=== PATIENT | male | born 1970 | race American Indian/Alaskan Native ===

== ENCOUNTER 2020-08-20 14:52 | Observation (INO) | payer BC ==
[2020-08-20] MEDS ORDERED: HEPARIN 10,000 UNITS/10 ML VIAL ONE (14:57)
[2020-08-20] MEDS ORDERED: fentaNYL 100 MCG/2 ML INJ ONE (14:57)
[2020-08-20] MEDS ORDERED: MIDAZOLAM 2 MG/2 ML INJ ONE (14:57)
[2020-08-20] MEDS ORDERED: HEPARIN/NS 5000 UNIT/500ML 0 ML IR ONE (14:57)
[2020-08-20] MEDS ORDERED: VERAPAMIL 5 MG/2 ML INJ ONE (14:58)
[2020-08-20] MEDS ORDERED: NITROGLYCERIN SYRINGE 0 ML ONE (14:58)
[2020-08-20] MEDS ORDERED: LIDOCAINE (2%) 20 MG/1 ML VIAL 20 ML MDV INFILTRATI ONE (14:58)
--- NOTE | 2020-08-20 15:04 | Emergency Department Report ---
ED General Adult HPI - General Time Seen by Provider: 08/20/20 15:00 - History of Present Illness Initial comments: Patient is a 49-year-old hypertensive male with past medical history of hypercholesterolemia and former smoking history presents emergency department for evaluation of chest pressure intermittently throughout the day beginning yesterday and into today. Patient was on his way to cardiology appointment when he began having chest pressure, called EMS who gave patient 1 dose of sublingual nitroglycerin with resolution of discomfort. Patient states he took aspirin prior to arrival. On arrival, patient pain-free, arrives as code STEMI, activated in ER. Denies maternal/paternal CAD. - Related Data Allergies Allergy/AdvReac Type Severity Reaction Status Date / Time No Known Allergies Allergy Unverified 08/20/20 15:23 ED Review of Systems ROS: Stated complaint: Other details as noted in HPI Comment: All other systems reviewed and negative ED Past Medical Hx - Past Medical History Hx Hypertension: Yes Hx Heart Attack/AMI: No Additional medical history: Hypercholesterolemia ED Physical Exam - General Limitations: No Limitations General appearance: alert, in no apparent distress - Head Head exam: Present: atraumatic, normocephalic - Eye Eye exam: Present: normal appearance - ENT ENT exam: Present: mucous membranes moist - Neck Neck exam: Present: normal inspection - Respiratory Respiratory exam: Present: normal lung sounds bilaterally. Absent: respiratory distress - Cardiovascular Cardiovascular Exam: Present: regular rate, normal rhythm - GI/Abdominal GI/Abdominal exam: Present: soft, normal bowel sounds - Rectal Rectal exam: Present: deferred - Extremities Exam Extremities exam: Present: normal inspection - Back Exam Back exam: Present: normal inspection - Neurological Exam Neurological exam: Present: alert, oriented X3 - Psychiatric Psychiatric exam: Present: normal affect, normal mood - Skin Skin exam: Present: warm, dry, intact, normal color. Absent: rash ED Course Vital Signs 08/20/20 08/20/20 15:10 15:15 Temperature 98 F Pulse Rate 95 H Respiratory 18 16 Rate Blood Pressure 140/102 O2 Sat by Pulse 95 95 Oximetry - Reevaluation(s) Reevaluation #1: 08/20/20 15:04 Dr. Will contacted, case discussed, EKG transmitted, cardiology states EKG not concerning for ME, STEMI deactivated Reevaluation #2: 08/20/20 15:05 Patient initially treated with IV normal saline 500 mL x 1, clonidine 0.2 mg p.o. x1 for tachycardia and hypertension ED Medical Decision Making - Lab Data Result diagrams: 08/20/20 15:12 - EKG Data -: EKG Interpreted by Me (Sinus tachycardia 117, nonspecific ST-T changes, normal QRS) - Radiology Data Radiology results: report reviewed Chest x-ray negative per radiology Critical care attestation.: If time is entered above; I have spent that time in minutes in the direct care of this critically ill patient, excluding procedure time. ED Disposition Clinical Impression: Chest pain Disposition: DC-09 OP ADMIT IP TO THIS HOSP Is pt being admited?: Yes Condition: Stable Instructions: Nonspecific Chest Pain, Adult Heart Score - HEART Score History: Slightly suspicious EKG: Non-specific Age: 45-65 Risk factors: > 3 risk factors or hx of atherosclerotic disease Troponin: < normal limit HEART Score: 4 - Critical Actions Critical Actions: 0-3 pts:0.9-1.7%risk of adverse cardiac event.Candidate for discharge
[2020-08-20 15:35] LABS: Eosinophils # (Auto) 0.2 K/mm3 (0.0-0.4); Eosinophils % (Auto) 2.9 % (0.0-4.3); Monocytes # (Auto) 0.4 K/mm3 (0.0-0.8); Monocytes % (Auto) 7.2 % (0.0-7.3)
[2020-08-20 15:50] LABS: INR 0.96 (0.87-1.13)
--- NOTE | 2020-08-20 15:50 | XRay Report ---
CHEST 1 VIEW INDICATION: Chest Pain. COMPARISON: None FINDINGS: Support devices: None. Heart: Within normal limits. Lungs/Pleura: No acute air space or interstitial disease. Additional findings: None. IMPRESSION: No acute findings. Signer Name: Jonathon Myles Jr, MD Signed: 08/20/2020 3:46 PM Workstation Name: [id number]
[2020-08-20 15:59] LABS: Alanine Aminotransferase 24 units/L (7-56); Albumin 4.4 g/dL (3.9-5); BUN/Creatinine Ratio 13; Blood Urea Nitrogen 15 mg/dL (9-20); Calcium 8.9 mg/dL (8.4-10.2); Hemolysis Index 11
[2020-08-20 16:34] LABS: Basophils % (Auto) 0.6 % (0.0-1.8); Hematocrit 47.3 % (35.5-45.6); Hemoglobin 15.8 gm/dl (11.8-15.2); Lymphocytes # (Auto) 1.2 K/mm3 (1.2-5.4); Lymphocytes % (Auto) 22.6 % (13.4-35.0); Mean Corpuscular HGB Conc 33 % (32-34); Mean Corpuscular Volume 82 fl (84-94); Platelet Count 134 K/mm3 (140-440); Red Blood Count 5.76 M/mm3 (3.65-5.03); Red Cell Distribution Width 14.3 % (13.2-15.2)
[2020-08-20] MEDS ORDERED: cloNIDine 0.2 MG TAB PO ONE (18:33)
[2020-08-20] MEDS ORDERED: SODIUM CHLORIDE 0.9% 500 ML 500 ML IV ONE (19:00)
[2020-08-20] MEDS ORDERED: hydrALAZINE 20 MG/1 ML INJ IV PRN (21:08)
[2020-08-21] MEDS ORDERED: oxyCODONE /ACETAMINOPHEN 5-325MG TAB PO PRN (00:57)
[2020-08-21] MEDS ORDERED: MORPHINE 2 MG/1 ML INJ IV PRN (00:57)
[2020-08-21] MEDS ORDERED: ACETAMINOPHEN 325 MG TAB PO PRN (00:57)
[2020-08-21] MEDS ORDERED: METOCLOPRAMIDE 10 MG/2 ML INJ IV PRN (00:57)
[2020-08-21] MEDS ORDERED: ONDANSETRON 4 MG/2 ML INJ IV PRN (00:57)
--- NOTE | 2020-08-21 01:02 | History and Physical Report ---
History of Present Illness Date of examination: 08/20/20 Date of admission: 08/20/20 15:54 Chief complaint: Chest pain since a.m. History of present illness: 49-year-old male with history of hypertension and hyperlipidemia presents with chest pressure since last night. Intermittent in nature. Patient is going to have cardiology appointment and started having chest pain before the recently called EMS and came to the emergency room. Patient was given sublingual nitroglycerin with resolution of chest pain by EMS. Patient also took aspirin prior to arrival. On arrival patient was pain-free. Because of the EKG changes code STEMI was called and then later it was canceled. Patient had acute ST-T wave changes secondary to his severe LVH on the EKG. No shortness of breath. No diaphoresis. No radiation of pain. Patient not taking his blood pressure medications. Patient complains of pedal edema Past History Past Medical History: hypertension, hyperlipidemia Past Surgical History: No surgical history Social history: no significant social history, lives with family, full code Family history: hypertension Medications and Allergies Allergies Allergy/AdvReac Type Severity Reaction Status Date / Time No Known Allergies Allergy Unverified 08/20/20 15:23 Home Medications Medication Instructions Recorded Confirmed Last Taken Type Aspirin [Adult Aspirin] 81 mg PO DAILY 08/20/20 08/20/20 Unknown History Atorvastatin [Lipitor Tab] 80 mg PO QHS 08/20/20 08/20/20 Unknown History NIFEdipine [Procardia Xl] 30 mg PO DAILY 08/20/20 08/20/20 Unknown History hydrALAZINE [Apresoline] 25 mg PO Q8HR 08/20/20 08/20/20 Unknown History Active Meds: Active Medications Hydralazine HCl (Hydralazine 20 Mg/1 Ml Inj) 10 mg IV Q4HR PRN PRN Reason: Blood Pressure Last Admin: 08/20/20 21:48 Dose: 10 mg Documented by: Exam - Constitutional Vitals: Temp Pulse Resp BP Pulse Ox 98.3 F 83 14 145/87 98 08/20/20 23:26 08/21/20 00:40 08/20/20 23:26 08/20/20 23:26 08/20/20 23:26 General appearance: Present: no acute distress, well-nourished - EENT Eyes: Present: PERRL ENT: hearing intact, clear oral mucosa - Neck Neck: Present: supple, normal ROM - Respiratory Respiratory effort: normal Respiratory: bilateral: CTA - Cardiovascular Rhythm: regular Heart Sounds: Present: S1 & S2. Absent: rub, click - Extremities Extremities: pulses symmetrical, No edema Extremity abnormal: edema Peripheral Pulses: within normal limits - Abdominal General gastrointestinal: Present: soft, non-tender, non-distended, normal bowel sounds Male genitourinary: Present: normal - Integumentary Integumentary: Present: clear, warm, dry - Musculoskeletal Musculoskeletal: gait normal, strength equal bilaterally - Psychiatric Psychiatric: appropriate mood/affect, intact judgment & insight - Neurologic Neurologic: CNII-XII intact, moves all extremities HEART Score - HEART Score EKG: Non-specific Age: 45-65 Risk factors: 1-2 risk factors Troponin: Troponin T 0.018 ng/mL (0.00-0.029) 08/20/20 15:12 Troponin: < normal limit - Critical Actions Critical Actions: 0-3 pts:0.9-1.7%risk of adverse cardiac event.Candidate for discharge Results - Labs CBC & Chem 7: 08/20/20 15:12 08/20/20 15:12 Labs: Laboratory Last Values WBC 5.5 K/mm3 (4.5-11.0) 08/20/20 15:12 RBC 5.76 M/mm3 (3.65-5.03) H 08/20/20 15:12 Hgb 15.8 gm/dl (11.8-15.2) H 08/20/20 15:12 Hct 47.3 % (35.5-45.6) H 08/20/20 15:12 MCV 82 fl (84-94) L 08/20/20 15:12 MCH 27 pg (28-32) L 08/20/20 15:12 MCHC 33 % (32-34) 08/20/20 15:12 RDW 14.3 % (13.2-15.2) 08/20/20 15:12 Plt Count 134 K/mm3 (140-440) L 08/20/20 15:12 Lymph % (Auto) 22.6 % (13.4-35.0) 08/20/20 15:12 Miner % (Auto) 7.2 % (0.0-7.3) 08/20/20 15:12 Eos % (Auto) 2.9 % (0.0-4.3) 08/20/20 15:12 Baso % (Auto) 0.6 % (0.0-1.8) 08/20/20 15:12 Lymph # (Auto) 1.2 K/mm3 (1.2-5.4) 08/20/20 15:12 Miner # (Auto) 0.4 K/mm3 (0.0-0.8) 08/20/20 15:12 Eos # (Auto) 0.2 K/mm3 (0.0-0.4) 08/20/20 15:12 Baso # (Auto) 0.0 K/mm3 (0.0-0.1) 08/20/20 15:12 Seg Neutrophils % 66.7 % (40.0-70.0) 08/20/20 15:12 Seg Neutrophils # 3.6 K/mm3 (1.8-7.7) 08/20/20 15:12 PT 12.7 Sec. (12.2-14.9) 08/20/20 15:12 INR 0.96 (0.87-1.13) 08/20/20 15:12 Sodium 138 mmol/L (137-145) 08/20/20 15:12 Potassium 3.4 mmol/L (3.6-5.0) L 08/20/20 15:12 Chloride 102.1 mmol/L (98-107) 08/20/20 15:12 Carbon Dioxide 24 mmol/L (22-30) 08/20/20 15:12 Anion Gap 15 mmol/L 08/20/20 15:12 BUN 15 mg/dL (9-20) 08/20/20 15:12 Creatinine 1.2 mg/dL (0.8-1.3) 08/20/20 15:12 Estimated GFR > 60 ml/min 08/20/20 15:12 BUN/Creatinine Ratio 13 % 08/20/20 15:12 Glucose 144 mg/dL (75-100) H 08/20/20 15:12 Calcium 8.9 mg/dL (8.4-10.2) 08/20/20 15:12 Total Bilirubin 0.40 mg/dL (0.1-1.2) 08/20/20 15:12 AST 18 units/L (5-40) 08/20/20 15:12 ALT 24 units/L (7-56) 08/20/20 15:12 Alkaline Phosphatase 65 units/L (35-129) 08/20/20 15:12 Troponin T 0.018 ng/mL (0.00-0.029) 08/20/20 15:12 NT-Pro-B Natriuret Pep 920.0 pg/mL (0-900) H 08/20/20 15:12 Total Protein 7.6 g/dL (6.3-8.2) 08/20/20 15:12 Albumin 4.4 g/dL (3.9-5) 08/20/20 15:12 Albumin/Globulin Ratio 1.4 % 08/20/20 15:12 Lipase 44 units/L (13-60) 08/20/20 15:12 Short CBC 08/20/20 Range/Units 15:12 WBC 5.5 (4.5-11.0) K/mm3 Hgb 15.8 H (11.8-15.2) gm/dl Hct 47.3 H (35.5-45.6) % Plt Count 134 L (140-440) K/mm3 BMP 08/20/20 15:12 Sodium 138 Potassium 3.4 L Chloride 102.1 Carbon Dioxide 24 BUN 15 Creatinine 1.2 Glucose 144 H Calcium 8.9 Cardiac Enzymes 08/20/20 Range/Units 15:12 Troponin T 0.018 (0.00-0.029) ng/mL Liver Function 08/20/20 Range/Units 15:12 Total Bilirubin 0.40 (0.1-1.2) mg/dL AST 18 (5-40) units/L ALT 24 (7-56) units/L Alkaline Phosphatase 65 (35-129) units/L Albumin 4.4 (3.9-5) g/dL - Imaging and Cardiology EKG: report reviewed (LVH with repolarization changes in V1 through V5) Assessment and Plan Advance Directives: Yes (Full code) VTE prophylaxis?: Chemical Plan of care discussed with patient/family: Yes - Patient Problems (1) Acute coronary syndrome Current Visit: Yes Status: Acute Plan to address problem: Patient once Patient to get echocardiogram and Lexiscan in the morning. CK and CK-MB for ruling out WA. (2) Hypertension Current Visit: Yes Status: Acute Plan to address problem: Nifedipine stopped because of the pedal edema Hydralazine increased to 50 mg. Valsartan 160 mg p.o. daily was added (3) Nicotine dependence Current Visit: Yes Status: Chronic Qualifiers: Nicotine product type: cigarettes Plan to address problem: Patient counseled about stopping smoking NicoDerm patch initiated (4) DVT prophylaxis Current Visit: Yes Status: Acute Plan to address problem: On heparin and GI prophylaxis
[2020-08-21] MEDS: hydrALAZINE 25 MG TAB PO SCH ×2 (03:53→05:34)
[2020-08-21] MEDS ORDERED: REGADENOSON 0.4 MG/5 ML INJ IV ONE (08:33)
[2020-08-21 09:31] LABS: Creatine Kinase MB 8.5 ng/mL (0.0-4.0)
--- NOTE | 2020-08-21 09:54 | Electrocardiograph Report ---
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
[2020-08-21] MEDS ORDERED: FAMOTIDINE 20 MG TAB PO SCH (10:00)
[2020-08-21] MEDS ORDERED: VALSARTAN 40 MG TAB PO SCH (10:00)
[2020-08-21] MEDS ORDERED: ASPIRIN EC 81 MG TAB PO SCH (10:00)
[2020-08-21] MEDS ORDERED: NICOTINE 14 MG/24 HR PATCH TD SCH (10:00)
[2020-08-21 10:10] LABS: Chol/HDL Ratio 5.43 %; HDL Cholesterol 46 mg/dL (40-59); LDL Cholesterol,Direct 179 mg/dL (50-130)
--- NOTE | 2020-08-21 10:54 | Discharge Summary ---
Providers - Providers Date of Admission: 08/20/20 15:54 Date of discharge: 08/21/20 Attending physician: KODAK HAHN Primary care physician: LICHA BRICENO MD Hospitalization Condition: Stable Hospital course: 49-year-old male with history of hypertension and hyperlipidemia presents with intermittent chest pressure since last night. Patient presented to ER with EMS. Patient was given sublingual nitroglycerin with resolution of chest pain by EMS. Patient also took aspirin prior to arrival. EKG in the ER showed acute ST-T wave changes, because of the EKG changes code STEMI was called and then later it was canceled as acute ST-T wave changes was secondary to his severe LVH. Initial cardiac enzyme was unremarkable, chest x-ray showed no infiltrates. Patient was admitted and underwent myocardial stress test which was normal. Patient was then discharged home in stable condition with outpatient follow-up. Disposition: - TO HOME OR SELFCARE Final Discharge Diagnosis (Prints w/discharge instructions): Acute chest pain, likely due to GERD or musculoskeletal. Hypertension. Hyperlipidemia. Tobacco abuse Time spent for discharge: 34 minutes Core Measure Documentation - Palliative Care Palliative Care/ Comfort Measures: Not Applicable Exam - Physical Exam Narrative exam: GENERAL: well-developed and well-nourished lying on bed appeared to be in no discomfort. HEENT: Normocephalic. Atraumatic. No conjunctival congestion or icterus. Patient has moist mucous membranes. NECK: Supple. Trachea midline. CHEST/LUNGS: Clear to auscultated bilaterally, breathing nonlabored. No wheezes crackles or rhonchi. HEART/CARDIOVASCULAR: Regular in rate and rhythm. S1 and S2 positive. ABDOMEN: Abdomen is soft, nontender. Patient has normal bowel sounds. SKIN: There is no rash. Warm and dry. NEURO: No focal motor deficit. Follows command. MUSCULOSKELETAL: No joint effusion or tenderness. EXTRIMITY: No edema, no cyanosis or clubbing. PSYCH: Cooperative. - Constitutional Vitals: Temp Pulse Resp BP Pulse Ox 98.6 F 73 18 152/96 98 08/21/20 07:50 08/21/20 07:50 08/21/20 07:50 08/21/20 07:50 08/21/20 07:50 Plan Activity: advance as tolerated Weight Bearing Status: Weight Bear as Tolerated Diet: low fat, low salt Follow up with: PRIMARY MD KAITY [Primary Care Provider] - 7 Days NASIR BERNABE MD [Staff Physician] - 7 Days Prescriptions: Nicotine [Habitrol] 14 mg TD QDAY #7 patch Pantoprazole [Protonix] 40 mg PO QDAY #30 tablet
[2020-08-21 15:31] VITALS: BP 154/87
[2020-08-21] MEDS ORDERED: NON-FORMULARY EACH (Atorvastatin [Lipitor] 80 MG Tablet) PO SCH (22:00)
== END 2020-08-21 14:03 | disposition home or self-care (01) ==
LOC: ED 14:52 → 4A 15:54
PROVIDERS: ADMIT Internal Medicine; ATTEND Internal Medicine
DX: I24.9 Acute ischemic heart disease, unspecified (principal); I10 Essential (primary) hypertension; E78.5 Hyperlipidemia, unspecified; F17.210 Nicotine dependence, cigarettes, uncomplicated; E78.00 Pure hypercholesterolemia, unspecified; Z79.82 Long term (current) use of aspirin; Z79.899 Other long term (current) drug therapy
CPT/HCPCS: 36415; 71045; 78452; 80053; 80061; 82553; 83036; 83690; 83880; 84484; 85025; 85610; 93005; 93017; 93306; 96374; 99285; A9502; G0378; J0360; J2785; J1644; J2250; J3010

== ENCOUNTER 2020-12-12 07:38 | Emergency (ER) | payer BC ==
[2020-12-12] MEDS ORDERED: IBUPROFEN 800 MG TAB PO ONE (07:57)
[2020-12-12] MEDS ORDERED: oxyCODONE /ACETAMINOPHEN 5-325MG TAB PO ONE (07:57)
--- NOTE | 2020-12-12 08:06 | Emergency Department Report ---
ED Upper Extremity Inj HPI - General Stated Complaint: DISLOCATED SHOULDER Time Seen by Provider: 12/12/20 07:51 - History of Present Illness Initial Comments: Chief complaint: Arm injury HPI: This is a 49-year-old male with history of hypertension, hyperlipidemia who presents with right upper arm pain after fall. Patient fell at his place of employment. A large warehouse door struck him, knocking him to the ground. He fell onto the right arm. He has right upper mid arm pain. No other injuries. No head trauma. No loss conscious. No weakness in extremity. MD Complaint: Injury to:: right, arm -: Sudden, This morning Other Extremity Injury: Arm: Right Other Injuries: none Place: work Severity scale (0 -10): 7 Improves With: immobilization Worsens With: movement of extremity Context: fall Associated Symptoms: denies other symptoms Treatments Prior to Arrival: other (EMS transport, sling immobilization) - Related Data Home Medications Medication Instructions Recorded Confirmed Last Taken Aspirin [Adult Aspirin] 81 mg PO DAILY 08/20/20 08/20/20 Unknown Atorvastatin [Lipitor] 80 mg PO QHS 08/20/20 08/20/20 Unknown NIFEdipine [Procardia Xl] 30 mg PO DAILY 08/20/20 08/20/20 Unknown hydrALAZINE [Apresoline TAB] 25 mg PO Q8HR 08/20/20 08/20/20 Unknown Previous Rx's Medication Instructions Recorded Last Taken Type Nicotine [Habitrol] 14 mg TD QDAY #7 patch 08/21/20 Unknown Rx Pantoprazole [Protonix] 40 mg PO QDAY #30 tablet 08/21/20 Unknown Rx HYDROcodone/APAP 5-325 [Hardin 1 each PO Q6HR PRN #15 tablet 12/12/20 Unknown Rx 5/325] Ibuprofen [Motrin 400 MG tab] 400 mg PO TID 5 Days #15 tablet 12/12/20 Unknown Rx Allergies Allergy/AdvReac Type Severity Reaction Status Date / Time No Known Allergies Allergy Verified 12/12/20 08:05 ED Review of Systems ROS: Stated complaint: DISLOCATED SHOULDER Other details as noted in HPI Comment: All other systems reviewed and negative Constitutional: denies: diaphoresis, malaise Respiratory: denies: cough, shortness of breath Cardiovascular: denies: chest pain Gastrointestinal: denies: abdominal pain, nausea, vomiting Neurological: numbness, paresthesias ED Past Medical Hx - Past Medical History Previous Medical History?: Yes Hx Hypertension: Yes Hx Heart Attack/AMI: No Additional medical history: Hypercholesterolemia - Surgical History Past Surgical History?: No - Family History Family history: hypertension - Social History Smoking Status: Current Some Day Smoker Substance Use Type: None - Medications Home Medications: Home Medications Medication Instructions Recorded Confirmed Last Taken Type Aspirin [Adult Aspirin] 81 mg PO DAILY 08/20/20 08/20/20 Unknown History Atorvastatin [Lipitor] 80 mg PO QHS 08/20/20 08/20/20 Unknown History NIFEdipine [Procardia Xl] 30 mg PO DAILY 08/20/20 08/20/20 Unknown History hydrALAZINE [Apresoline TAB] 25 mg PO Q8HR 08/20/20 08/20/20 Unknown History Nicotine [Habitrol] 14 mg TD QDAY #7 patch 08/21/20 Unknown Rx Pantoprazole [Protonix] 40 mg PO QDAY #30 tablet 08/21/20 Unknown Rx HYDROcodone/APAP 5-325 [Hardin 1 each PO Q6HR PRN #15 tablet 12/12/20 Unknown Rx 5/325] Ibuprofen [Motrin 400 MG tab] 400 mg PO TID 5 Days #15 tablet 12/12/20 Unknown Rx ED Physical Exam - General Limitations: No Limitations General appearance: alert, in no apparent distress - Head Head exam: Present: atraumatic, normocephalic - Eye Eye exam: Present: normal appearance - ENT ENT exam: Present: mucous membranes moist - Neck Neck exam: Present: normal inspection, full ROM - Respiratory Respiratory exam: Present: normal lung sounds bilaterally. Absent: respiratory distress, wheezes, rales, rhonchi - Cardiovascular Cardiovascular Exam: Present: regular rate, normal rhythm, normal heart sounds. Absent: systolic murmur, diastolic murmur, rubs, gallop - GI/Abdominal GI/Abdominal exam: Present: soft, normal bowel sounds. Absent: distended, tenderness, guarding, rebound - Rectal Rectal exam: Present: deferred - Extremities Exam Extremities exam: Present: other (Right upper extremity in sling: Mild mid humerus tenderness without deformity, no deformity of the right shoulder. Intact skin. Median ulnar radial nerves distally intact) - Expanded Upper Extremity Exam Right General: Present: other Shoulder Exam: Present: normal inspection, full ROM. Absent: tenderness, swelling, abrasion Upper Arm exam: Present: normal inspection, tenderness. Absent: swelling, abrasion, laceration Elbow exam: Present: normal inspection, full ROM. Absent: tenderness, swelling, abrasion Forearm Wrist exam: Present: normal inspection, full ROM. Absent: tenderness, swelling Hand Wrist exam: Present: normal inspection, full ROM Neuro motor exam: Present: wrist extension intact Neurosensory exam: Present: radial nerve intact, ulnar nerve intact, median nerve intact Vascular: Present: normal capillary refill - Neurological Exam Neurological exam: Present: alert, oriented X3 - Psychiatric Psychiatric exam: Present: normal affect, normal mood - Skin Skin exam: Present: warm, dry, intact, normal color. Absent: rash ED Course Vital Signs 12/12/20 08:13 Temperature 98.8 F Pulse Rate 72 Respiratory 18 Rate Blood Pressure 189/115 O2 Sat by Pulse 96 Oximetry ED Medical Decision Making - Radiology Data Radiology results: report reviewed, image reviewed interpreted by me: No fracture or dislocation [facility] [address] [place] [address] XRay Report Signed Patient: SHAWNA LAMBERT MR#: [id number] 1 : 1970 Acct:[id number] Age/Sex: 49 / M ADM Date: 12/12/20 Loc: ED Attending Dr: Ordering Physician: Gita Ta MD Date of Service: 12/12/20 Procedure(s): XR humerus 2+V RT Accession Number(s): [id number] cc: Gita Ta MD Fluoro Time In Minutes: Right humerus 2 views INDICATION: Right humeral pain following fall IMPRESSION: The humerus appears intact. Signer Name: Zac Whipple MD Signed: 12/12/2020 8:39 AM Workstation Name: [id number] Transcribed By: BC Dictated By: Zac Whipple MD Electronically Authenticated By: Zac Whipple MD Signed Date/Time: 12/12/20838 DD/ 8 TD/TT: - Medical Decision Making 1. Right upper arm contusion after fall on reexamination, patient points to the superior mid humerus as the point of pain. He has full range of motion in his right shoulder without step-off. I have referred him to orthopedic surgeon. He was placed in sling. Provided prescriptions for ibuprofen and Hardin. 2. Incidental finding of elevated blood pressure: No indication of for further treatment evaluation at this time Critical care attestation.: If time is entered above; I have spent that time in minutes in the direct care of this critically ill patient, excluding procedure time. ED Disposition Clinical Impression: Contusion of right arm, Fall, Work related injury, Hypertension Disposition: TO HOME OR SELFCARE Is pt being admited?: No Does the pt Need Aspirin: No Condition: Stable Instructions: Contusion, [id number], Managing Your Hypertension, Hypertension (ED) Prescriptions: Ibuprofen [Motrin 400 MG tab] 400 mg PO TID 5 Days #15 tablet HYDROcodone/APAP 5-325 [Hardin 5/325] 1 each PO Q6HR PRN #15 tablet PRN Reason: Pain Referrals: NITIN BUSTILLOS MD [Staff Physician] - 3-5 Days Forms: Work/School Release Form(ED)
--- NOTE | 2020-12-12 08:44 | XRay Report ---
Right humerus 2 views INDICATION: Right humeral pain following fall IMPRESSION: The humerus appears intact. Signer Name: Zac Whipple MD Signed: 12/12/2020 8:39 AM Workstation Name: [id number]
[2020-12-12 09:02] VITALS: BP 157/101
== END 2020-12-12 09:31 | disposition home or self-care (01) ==
LOC: ED 07:38
DX: S40.011A Contusion of right shoulder, initial encounter (principal); I10 Essential (primary) hypertension; F17.200 Nicotine dependence, unspecified, uncomplicated; Z79.1 Long term (current) use of non-steroidal anti-inflammatories (NSAID); Z79.899 Other long term (current) drug therapy; W19.XXXA Unspecified fall, initial encounter; Y93.89 Activity, other specified; Y92.89 Other specified places as the place of occurrence of the external cause; Y99.0 Civilian activity done for income or pay